=== PATIENT | male | born 1940 | race Caucasian/White ===

== ENCOUNTER 2019-03-21 11:30 | Day surgery (SDC) | payer MEDICARE, OTHER ==
[~2019-03-21] VITALS: Ht 170.2 cm; Wt 85.3 kg
[2019-03-21] MEDS ORDERED: Aspir 8181 MG PO (12:16)
[2019-03-21] MEDS ORDERED: PRED20 (12:16)
[2019-03-21] MEDS ORDERED: [UNRECOGNIZED DRUG - REMARK] (12:17)
--- NOTE | 2019-03-21 12:37 | NUR ---
03/21/19 1237 Felicity Cardenas UPON ADMITTING TO PRE OP PT STATES HE ATE BREAKFAST THIS AM AND HAD COFFEE WITH SWEETNER. DR. ESTEVEZ NOTIFIED. DR. ESTEVEZ STATES OK TO CONTINUE WITH PROCEDURE LONG PT IS OK WITH STRAIGHT LOCAL, NO SEDATION. PT NOTIFIED. PT STATES HE IS OK TO CONTINUE WITH JUST LOCAL.
== END 2019-03-21 14:33 | disposition home or self-care (01) ==
LOC: ORSCSDS 11:30 → ORD 13:00 → ORSCSDS 14:33 → ORD 04-05 11:30
PROVIDERS: Otolaryngology
PROC: 03BT0ZX Excision of Left Temporal Artery, Open Approach, Diagnostic (ICD-10-PCS; principal; 2019-03-21 13:00)
DX: M31.6 Other giant cell arteritis (principal); R51 Headache; Z87.891 Personal history of nicotine dependence
CPT/HCPCS: 88305; 88313; 93005; 93010; J0171; J1100; J7120

== ENCOUNTER 2019-06-05 08:09 | Day surgery (SDC) | payer MEDICARE, OTHER ==
[~2019-06-05] VITALS: Ht 170.2 cm; Wt 88.3 kg
[~2019-06-05 08:09] MED LIST: AMLO5 PO; Anti-Diarrheal2 MG; Aspir 8181 MG PO; OMEPRAZOLE20 M1 PO; PRED20; PREDNISONE PO; SUCR1 PO; [UNRECOGNIZED DRUG - REMARK]
--- NOTE | 2019-06-05 09:49 | NUR ---
06/05/19 0949 Gabbi Kwok PT UPDATED ON DELAY IN HIS START TIME DUE TO PREVIOUS CASE RUNNING LONGER THAN SCHEDULED. BED IN LOW, LOCKED POSITION, CALL LIGHT IN REACH.
== END 2019-06-05 11:12 | disposition home or self-care (01) ==
LOC: ORSCSDS 08:09
PROVIDERS: Surgery
PROC: 0DBL8ZX Excision of Transverse Colon, Via Natural or Artificial Opening Endoscopic, Diagnostic (ICD-10-PCS; principal; 2019-06-05 09:45)
PROC: 0DB78ZX Excision of Stomach, Pylorus, Via Natural or Artificial Opening Endoscopic, Diagnostic (ICD-10-PCS; principal; 2019-06-05 09:45)
PROC: 0DBH8ZX Excision of Cecum, Via Natural or Artificial Opening Endoscopic, Diagnostic (ICD-10-PCS; principal; 2019-06-05 09:45)
PROC: 0DB48ZX Excision of Esophagogastric Junction, Via Natural or Artificial Opening Endoscopic, Diagnostic (ICD-10-PCS; principal; 2019-06-05 09:45)
PROC: 0DBE8ZX Excision of Large Intestine, Via Natural or Artificial Opening Endoscopic, Diagnostic (ICD-10-PCS; principal; 2019-06-05 09:45)
PROC: 0DB98ZX Excision of Duodenum, Via Natural or Artificial Opening Endoscopic, Diagnostic (ICD-10-PCS; principal; 2019-06-05 09:45)
DX: R19.5 Other fecal abnormalities (principal); R19.4 Change in bowel habit; K31.7 Polyp of stomach and duodenum; D12.0 Benign neoplasm of cecum; K21.9 Gastro-esophageal reflux disease without esophagitis; D12.3 Benign neoplasm of transverse colon; Z80.0 Family history of malignant neoplasm of digestive organs; I10 Essential (primary) hypertension; Z87.891 Personal history of nicotine dependence; F21 Schizotypal disorder; Z79.899 Other long term (current) drug therapy
CPT/HCPCS: 88305; 88342; J2704